=== PATIENT | female | born 1935 | race Caucasian/White ===

== ENCOUNTER → 2024-04-16 | Outpatient (CLI) | payer MEDICAID ==
[2024-04-16 09:30] LABS: Urine Bacteria None Seen /hpf (None Seen)
[2024-04-16 10:00] LABS: Basophils # (auto) 0 10 ^3/uL (0-0.2); Basophils % (auto) 0.5 % (0.0-2.0); Eosinophils # (auto) 0.3 10 ^3/uL (0-0.8); Eosinophils % (auto) 4.3 % (0.0-7.0); Hematocrit 38.6 % (36.0-46.0); Hemoglobin 13.1 g/dL (12.2-16.2); Lymphocytes # (auto) 2.2 10 ^3/uL (0.4-5.4); Lymphocytes % (auto) 28.4 % (10.0-50.0); Mean Corpuscular Hemoglobin 34.4 pg (28.0-32.0); Mean Corpuscular Hgb Conc. 34.1 g/dL (32.0-36.0); Mean Corpuscular Volume 100.9 fL (80.0-100.0); Monocytes # (auto) 0.7 10 ^3/uL (0-1.3); Monocytes % (auto) 9.1 % (0.0-12.0); Neutrophils # (auto) 4.6 10 ^3/uL (1.6-8.6); Neutrophils % (auto) 57.7 % (37.0-80.0); Platelet Count (auto) 224 10^3/uL (140-450); Red Blood Cells 3.82 10^6/uL (4.0-5.20); Red Cell Distribution Width 12.9 % (11.8-14.3); White Blood Cell 7.9 10^3/uL (4.4-10.8)
[2024-04-16 10:05] LABS: Alanine Aminotransferase 18 U/L (7-40); Albumin 4.1 g/dL (3.2-4.8); Alkaline Phosphatase 56 U/L (46-116); Anion Gap 7 (5-15); Aspartate Aminotransferase 20 U/L (13-40); BUN/Creatinine Ratio 11.1 (10.0-20.0); Blood Urea Nitrogen 10 mg/dL (9-23); Carbon Dioxide 30 mmol/L (20-31); Chloride 102 mmol/L (98-107); Glucose 101 mg/dL (74-106); LDL Cholesterol 61 mg/dL (< 100); Potassium 4.3 mmol/L (3.5-5.1); Sodium 139 mmol/L (136-145)
[2024-04-16 10:06] LABS: Bilirubin, Total 0.8 mg/dL (0.2-1.0); Cholesterol 149 mg/dL (< 200); Creatine Kinase IFCC 47 U/L (34-145); Total Protein 6.4 g/dL (5.7-8.2)
[2024-04-16 10:19] LABS: Calcium 10.5 mg/dL (8.7-10.4); HDL Cholesterol 64 mg/dL (40-59); Triglycerides 174 mg/dL (< 150)
[2024-04-16 10:53] LABS: Uric Acid 4.9 mg/dL (3.1-7.8)
[2024-04-16 11:26] LABS: Urine Blood Negative /uL (Negative); Urine Clarity Clear (Clear); Urine Color Yellow (Yellow); Urine Protein, UAD Negative (Negative); Urine Specific Gravity 1.012 (1.001-1.035); Urine Squamous Epithelial Cell FEW /hpf (<5); Urine Urobilinogen Normal (Negative); Urine WBC 70 /hpf (0 - 5)
== END | disposition home or self-care (01) ==
LOC: LAB 09:12
PROVIDERS: ATTEND Internal Medicine
DX: E78.5 Hyperlipidemia, unspecified (principal); N32.81 Overactive bladder; E03.9 Hypothyroidism, unspecified; M17.9 Osteoarthritis of knee, unspecified; Z00.00 Encounter for general adult medical examination without abnormal findings
CPT/HCPCS: 36415; 80053; 80061; 81001; 82306; 82550; 84436; 84443; 84550; 85025; 87086; 87088; 87186

== ENCOUNTER → 2024-10-13 | Outpatient (CLI) | payer MEDICAID ==
[2024-10-13 08:19] LABS: Alanine Aminotransferase 21 U/L (7-40); Albumin 4.4 g/dL (3.2-4.8); Alkaline Phosphatase 54 U/L (46-116); Anion Gap 9 (5-15); BUN/Creatinine Ratio 11.5 (10.0-20.0); Blood Urea Nitrogen 10 mg/dL (9-23); Calcium 10.3 mg/dL (8.7-10.4); Carbon Dioxide 29 mmol/L (20-31); Chloride 102 mmol/L (98-107); Cholesterol 155 mg/dL (< 200); Glucose 89 mg/dL (74-106); Potassium 4.4 mmol/L (3.5-5.1); Sodium 140 mmol/L (136-145); Total Protein 6.7 g/dL (5.7-8.2)
[2024-10-13 08:20] LABS: Bilirubin, Total 0.8 mg/dL (0.2-1.0); HDL Cholesterol 60 mg/dL (40-59); Triglycerides 158 mg/dL (< 150)
[2024-10-13 08:33] LABS: Microalb/Creat Ratio, Urine 56.0
== END | disposition home or self-care (01) ==
LOC: LAB 07:32
PROVIDERS: ATTEND Internal Medicine
DX: E78.5 Hyperlipidemia, unspecified (principal); E03.5 Myxedema coma; R73.9 Hyperglycemia, unspecified
CPT/HCPCS: 36415; 80053; 80061; 82043; 82570; 83036; 84436; 84443; 84480

== ENCOUNTER → 2025-01-15 | Outpatient (CLI) | payer MEDICAID ==
[2025-01-15 08:59] LABS: Microalb/Creat Ratio, Urine < 8.00
[2025-01-15 09:03] LABS: Alanine Aminotransferase 21 U/L (7-40); Albumin 4.2 g/dL (3.2-4.8); Alkaline Phosphatase 53 U/L (46-116); Anion Gap 10 (5-15); BUN/Creatinine Ratio 11.6 (10.0-20.0); Bilirubin, Total 0.7 mg/dL (0.2-1.0); Blood Urea Nitrogen 10 mg/dL (9-23); Calcium 9.2 mg/dL (8.7-10.4); Carbon Dioxide 28 mmol/L (20-31); Chloride 101 mmol/L (98-107); Cholesterol 161 mg/dL (< 200); Glucose 80 mg/dL (74-106); HDL Cholesterol 67 mg/dL (40-59); Potassium 4.3 mmol/L (3.5-5.1); Sodium 139 mmol/L (136-145); Total Protein 7.0 g/dL (5.7-8.2); Triglycerides 124 mg/dL (< 150)
== END | disposition home or self-care (01) ==
LOC: LAB 07:46
PROVIDERS: ATTEND Internal Medicine
DX: E78.5 Hyperlipidemia, unspecified (principal); E03.5 Myxedema coma; E55.9 Vitamin D deficiency, unspecified; R73.9 Hyperglycemia, unspecified
CPT/HCPCS: 36415; 80053; 80061; 82043; 82306; 82570; 83036; 84436; 84443; 84480